=== PATIENT | female | born 1995 | race Caucasian/White ===

== ENCOUNTER → 2023-10-25 11:56 | Outpatient (BNVA) | payer OTHER, SELFPAY | PROVIDERS: Visit Provider Registered Nurse | DX: S30.0XXA Contusion of lower back and pelvis, initial encounter (principal); S50.01XA Contusion of right elbow, initial encounter; W07.XXXA Fall from chair, initial encounter | CPT/HCPCS: 99203 ==

== ENCOUNTER → 2023-10-30 15:09 | Outpatient (BNVA) | payer OTHER, SELFPAY | PROVIDERS: Visit Provider Registered Nurse | DX: S30.0XXA Contusion of lower back and pelvis, initial encounter (principal); S50.01XA Contusion of right elbow, initial encounter; W07.XXXA Fall from chair, initial encounter | CPT/HCPCS: 99213 ==

== ENCOUNTER → 2023-11-06 10:51 | Outpatient (BNVA) | payer OTHER, SELFPAY | PROVIDERS: Visit Provider Registered Nurse | DX: S30.0XXD Contusion of lower back and pelvis, subsequent encounter (principal); S50.01XD Contusion of right elbow, subsequent encounter; W07.XXXD Fall from chair, subsequent encounter | CPT/HCPCS: 99213 ==

== ENCOUNTER → 2023-11-13 15:18 | Outpatient (BNVA) | payer OTHER, SELFPAY | PROVIDERS: Visit Provider Registered Nurse | DX: S30.0XXD Contusion of lower back and pelvis, subsequent encounter (principal); W07.XXXD Fall from chair, subsequent encounter | CPT/HCPCS: 99213 ==

== ENCOUNTER → 2023-11-21 15:16 | Outpatient (BNVA) | payer OTHER, SELFPAY | PROVIDERS: Visit Provider Registered Nurse | DX: S30.0XXD Contusion of lower back and pelvis, subsequent encounter (principal); W07.XXXD Fall from chair, subsequent encounter | CPT/HCPCS: 99213 ==

== ENCOUNTER → 2023-12-05 15:20 | Outpatient (BNVA) | payer OTHER, SELFPAY | PROVIDERS: PCP Internal Medicine Sports Medicine; Visit Provider Registered Nurse | DX: S30.0XXD Contusion of lower back and pelvis, subsequent encounter (principal); W07.XXXD Fall from chair, subsequent encounter | CPT/HCPCS: 99213 ==

== ENCOUNTER → 2023-12-19 15:06 | Outpatient (BNVA) | payer OTHER, SELFPAY | PROVIDERS: PCP Internal Medicine Sports Medicine; Visit Provider Registered Nurse | DX: S30.0XXD Contusion of lower back and pelvis, subsequent encounter (principal); W07.XXXD Fall from chair, subsequent encounter | CPT/HCPCS: 99213 ==

== ENCOUNTER → 2024-01-02 15:38 | Outpatient (BNVA) | payer OTHER, SELFPAY | PROVIDERS: PCP Internal Medicine Sports Medicine; Visit Provider Registered Nurse | DX: S30.0XXD Contusion of lower back and pelvis, subsequent encounter (principal); W07.XXXD Fall from chair, subsequent encounter | CPT/HCPCS: 99213 ==

== ENCOUNTER 2024-01-04 15:00 | Outpatient (RCR) | payer OTHER, SELFPAY ==
--- NOTE | 2023-12-07 16:39 | MHC.PT.EP ---
[facility] [place] Office [place] Office [place] Office [address] Yani Banks [address] [phone] F: [phone] F: [phone] F: [phone] F: [phone] Physical Therapy Plan of Care Date of Evaluation: 12/07/23 Date of Surgery: N/A Diagnosis: lumbar contusion (RL) Assessment: pt is a 28 y/o female presenting to physical therapy w/ referring diagnosis of lumbar contusion. pt's signs and symptoms seem consistent w/ muscle spasm and potential SI joint involvement. Impairments include pain, decreased range of motion, decreased strength, impaired functional mobility, impaired postural awareness, and altered ambulation mechanics. pt is a good candidate for skilled PT due to age, potential remediation of impairments, typical disease/condition progression and prognosis, comorbidities, and motivation. pt would benefit from skilled PT intervention to provide a tailored strengthening and stretching exercise program, functional training, gait training, postural re-training, neuromuscular re-education, modalities as needed for pain, equipment safety demonstration. Frequency and Duration: The patient will be seen 2x/wk for 4 wks Short Term Goals: pt will be I w/ HEP to promote self-management of condition. pt will demo proper sitting posture w/ lumbar roll to promote neutral spine w/ seated ADLs. 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 pt will ambulate >2600' w/o AD w/ <2/10 low back pain to promote ease in community/work ambulation. Treatment Plan: Modalities to reduce pain, spasms and effusion. Manual therapy to restore motion and function. Therapeutic exercise to improve strength and flexibility. Neuromuscular re-education for posture and balance. Therapeutic activities to return to functional activities of daily living. Electronically signed by: Alessia Keith PT, DPT Please sign and return to therapist. Thank you for your referral.
--- NOTE | 2024-03-22 10:38 | MHC.PT.DC ---
[facility] [place] Office [place] Office [place] Office [address] Yani Banks 140 [facility] [phone] F: [phone] F: [phone] F: [phone] F: [phone] Physical Therapy Discharge Report Diagnosis: lumbar contusion (RL) Date of Surgery: N/A Date of Evaluation: 12/07/23 Date of Discharge: 03/22/24 Treatments to Date: 7 Cancellations to Date: 7 No Shows to Date: 5 Discharge Status: Visit Non-compliance Discharge Summary: The patient has not been seen in our office in nearly 3 months. 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 There were multiple attempts made to get her back into PT; however, there were multiple barriers. I have not received any further updates in the past several weeks so she will be discharged at this time. Here is the assessment from her last re-evaluation on 01/04/24: The patient overall feels she has improved 50% since starting physical therapy. She feels her pain overall is less frequent and less intense. She has noticed improvements in activities such as bed mobility/transfers. She does still have pain and difficulty with activities such as standing to do dishes and ambulating up inclines (required for work-related ambulation). 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 She would continue to benefit from skilled PT services for 2x/wk for an additional 2 wks to continue to remediate limitations in strength and flexibility to promote optimal functional lifting mechanics and ambulation mechanics. Ultimately, to promote a pain-free return to work-related tasks. Electronically signed by: Alessia Keith PT, DPT Please sign and return to therapist. Thank you for your referral.
== END 2024-03-22 10:38 | disposition home or self-care (01) ==
LOC: HO.PT 15:00
PROVIDERS: PCP Internal Medicine Sports Medicine; Visit Provider Registered Nurse
DX: S30.0XXD Contusion of lower back and pelvis, subsequent encounter (principal)
CPT/HCPCS: 97110; 97140; 97162; 97164; 97530

== ENCOUNTER → 2024-02-02 12:50 | Outpatient (BNVA) | payer OTHER, SELFPAY | PROVIDERS: PCP Internal Medicine Sports Medicine; Visit Provider Registered Nurse | DX: S30.0XXD Contusion of lower back and pelvis, subsequent encounter (principal); W07.XXXD Fall from chair, subsequent encounter | CPT/HCPCS: 99213 ==

== ENCOUNTER → 2024-03-01 12:45 | Outpatient (BNVA) | payer OTHER, SELFPAY | PROVIDERS: PCP Internal Medicine Sports Medicine; Visit Provider Registered Nurse | DX: S30.0XXD Contusion of lower back and pelvis, subsequent encounter (principal); W07.XXXD Fall from chair, subsequent encounter | CPT/HCPCS: 99213 ==